=== PATIENT | female | born 1950 | race Two or more races ===

== ENCOUNTER 2024-08-20 10:32 | Outpatient (REF) | payer MEDICAID, SELFPAY ==
[2024-08-20 13:31] LABS: MANUAL DIFF FLAG NO
[2024-08-20 13:39] LABS: Basophils Percent Auto 0.5 % (0-2); Eosinophils Absolute Auto 0.1 X10*3/uL (0.0-0.4); Eosinophils Percent Auto 2.2 % (0-4); Hematocrit 41.6 % (37.0-47.0); Hemoglobin 13.3 g/dl (12.0-16.0); Imm Gran Abs Auto 0.01 X10*3/uL (0.00-0.03); Imm Gran Pct Auto 0.2 % (0.0-0.4); Lymphocytes Absolute Auto 2.5 X10*3/uL (1.2-4.9); Lymphocytes Percent Auto 38.9 % (20-40); Mean Corpuscular Volume 93.9 fL (80.0-98.0); Mean Platelet Volume 10.4 fL (9.4-12.3); Monocytes Absolute Auto 0.5 X10*3/uL (0.1-1.2); Monocytes Percent Auto 8.1 % (2-11); Neutrophils Absolute Auto 3.2 x10*3/uL (2.0-8.3); Neutrophils Percent Auto 50.1 % (45-73); Platelet Count 264 X10*3/uL (160-400); Red Blood Count 4.43 X10*6/uL (4.20-5.50); White Blood Count 6.4 X10*3/uL (4.8-10.8)
[2024-08-20 14:07] LABS: Alanine Aminotransferase 14 U/L (0-31); Albumin Level 3.9 g/dL (3.5-5.0); Anion Gap 10 (12-20); Aspartate Amino Transferase 25 U/L (5-31); Bilirubin Total 0.7 mg/dL (0.0-1.0); Blood Urea Nitrogen 12 mg/dL (9-16); Carbon Dioxide 33 mmol/L (22-29); Chloride 101 mmol/L (96-108); Cholesterol 198 mg/dL (<200); Estimated Glomerular Filt Rate > 60; Glucose Random 106 mg/dL (60-115); HDL Cholesterol 43 mg/dL (>40); LDL Cholesterol Calculated 131 mg/dL (<100); Potassium 4.3 mmol/L (3.3-5.1); Sodium 140 mmol/L (135-145); Total Protein 6.8 g/dL (6.5-8.0); Triglycerides 123 mg/dL (<150)
[2024-08-20 14:13] LABS: Alkaline Phosphatase 64 U/L (39-117)
[2024-08-20 14:17] LABS: Erythrocyte Sedimentation Rate 12 MM/HR (0-20)
[2024-08-20 14:20] LABS: Free T4 (Free Thyroxine) 1.14 ng/dL (0.71-1.85); TSH reflex Free T4 1.36 uIU/mL (0.32-4.0); Thyroid Stimulating Hormone 1.36 uIU/mL (0.32-4.0)
[2024-08-20 15:07] LABS: Reflex LDLD? No
[2024-08-20 15:41] LABS: Folate 9.9 ng/mL (> or = 4.0); Vitamin B12 430 pg/mL (200-900)
[2024-08-22 00:43] LABS: Triiodothyronine T3 Free 3.1 pg/mL (2.3-4.2); Triiodothyronine T3 Total 102 ng/dL (76-181)
[2024-08-22 01:44] LABS: Thyroglobulin Antibodies <1 IU/mL (< or = 1)
== END 2024-08-20 10:33 | disposition home or self-care (01) ==
LOC: HO.HHCL 10:32
PROVIDERS: Visit Provider Internal Medicine
DX: I10 Essential (primary) hypertension (principal); R20.0 Anesthesia of skin; R79.89 Other specified abnormal findings of blood chemistry
CPT/HCPCS: 36415; 80053; 80061; 82607; 82746; 84439; 84443; 84480; 84481; 85025; 85652; 86800